=== PATIENT | female | born 1995 ===

== ENCOUNTER 2019-02-09 04:55 | Inpatient (IN) | payer SELFPAY ==
[2019-02-09] MEDS ORDERED: Terbutaline 1 MG/ML SDV SUBCUT PRN (05:07)
[2019-02-09] MEDS ORDERED: Sodium Chloride 0.9% 10 ML Syringe FLUSH PRN (05:08)
[2019-02-09] MEDS ORDERED: Water For Irrigation,Sterile 1,000 ML Container IRR PRN (05:08)
[2019-02-09] MEDS ORDERED: Nalbuphine 10 MG/1 ML Vial IVPUSH PRN (05:08)
[2019-02-09] MEDS ORDERED: Tranexamic Acid 1,000 MG in Sodium Chloride 0.9% 100 ML IV PRN (05:08)
[2019-02-09] MEDS ORDERED: Ondansetron 4 MG/2 ML SDV IVPUSH PRN (05:08)
[2019-02-09] MEDS ORDERED: Carboprost Tromethamine 250 MCG/1 ML Amp IM PRN (05:08)
[2019-02-09] MEDS ORDERED: Misoprostol 200 MCG Tab PO PRN (05:08)
[2019-02-09] MEDS ORDERED: Sodium Chloride 0.9% 10 ML SDV IV PRN (05:08)
[2019-02-09] MEDS ORDERED: Methylergonovine 0.2 MG/1 ML Amp IM PRN (05:08)
[2019-02-09] MEDS ORDERED: Sodium Chloride 0.9% 2.5 ML Syringe FLUSH PRN (05:08)
[2019-02-09] MEDS ORDERED: Lidocaine 1% 50 ML MDV INJECT PRN (05:08)
[2019-02-09] MEDS ORDERED: Oxytocin/0.9 % Sodium Chloride 30 UNIT/500 ML BAG IV SCH ×2 (05:15)
[2019-02-09] MEDS ORDERED: Lactated Ringers 1,000 ML IV SCH (05:15)
--- NOTE | 2019-02-09 08:22 | PCM.LDHP ---
L&D History of Present Illness - General Date of Service: 02/09/19 Admit Problem/Dx: Patient Status Order with Admit Dx/Problem 02/09/19 05:08 Patient Status [ADT] Routine Admission Diagnosis/Problem Admission Diagnosis/Problem 02/09/19 08:18 23yo EDC 02/12/2019 39 4/7wks, IOL term. O+, RI, GBS neg. 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: Social & Family History - Tobacco Use Smoking Status *Q: Never Smoker Second Hand Smoke Exposure: No - Caffeine Use Caffeine Use: Reports: Coffee, Soda - Recreational Drug Use Recreational Drug Use: No H&P Review of Systems - Review of Systems: Review Of Systems: See Below General: Reports: No Symptoms HEENT: Reports: No Symptoms Pulmonary: Reports: No Symptoms Cardiovascular: Reports: No Symptoms Gastrointestinal: Reports: No Symptoms Genitourinary: Reports: No Symptoms Musculoskeletal: Reports: No Symptoms Skin: Reports: No Symptoms Psychiatric: Reports: No Symptoms Neurological: Reports: No Symptoms Hematologic/Lymphatic: Reports: No Symptoms Immunologic: Reports: No Symptoms L&D Exam - Exam Exam: See Below - Vital Signs Weight: 81.647 kg - OB Specific Contraction Intensity: Moderate Movement: Active Heart Tones: Present Heart Tones per Min: 150 Heart Rate (FHR) Variability: Moderate (6-25 bmp) Presentation: Vertex - Blanco Score Blanco Score Cervix Position: Anterior Blanco Score Consistency: Soft Blanco Score Effacement: >80% Blanco Score Dilation: > 5 cm Blanco Score Infant's Station: -2 Blanco Score Total: 11 - Exam General: Alert, Oriented HEENT: Hearing Intact Lungs: Normal Respiratory Effort GI/Abdominal Exam: Soft, Non-Tender Rectal Exam: Deferred Genitourinary: Normal external exam, Normal bimanual exam, Cervical dilitation, Cervical fluid Back Exam: Normal Inspection, Full Range of Motion Extremities: Normal Inspection, Normal Range of Motion, Non-Tender, No Pedal Edema Skin: Warm, Dry, Intact Neurological: Cranial Nerves Intact, Strength Equal Bilateral, Normal Gait, Normal Speech, Normal Tone, Sensation Intact Psychiatric: Alert, Normal Affect, Normal Mood - Patient Data Lab Results Last 24 hrs: Laboratory Results - last 24 hr 02/09/19 02/09/19 Range/Units 05:38 05:38 WBC 9.10 (4.0-11.0) K/uL RBC 3.69 L (4.30-5.90) M/uL Hgb 10.8 L (12.0-16.0) g/dL Hct 32.4 L (36.0-46.0) % MCV 87.8 (80.0-98.0) fL MCH 29.3 (27.0-32.0) pg MCHC 33.3 (31.0-37.0) g/dL RDW Std Deviation 45.0 (28.0-62.0) fl RDW Coeff of Leeroy 14 (11.0-15.0) % Plt Count 257 (150-400) K/uL MPV 9.60 (7.40-12.00) fL Nucleated RBC % 0.0 /100WBC Nucleated RBCs # 0 K/uL Blood Type O POSITIVE Antibody Screen NEGATIVE Result Diagrams: 02/09/19 05:38 - Problem List (1) Supervision of normal IUP (intrauterine ) in multigravida SNOMED Code(s): 712650484, 077475029, 762338497 ICD Code: Z34.80 - ENCOUNTER FOR SUPRVSN OF NORMAL , UNSP TRIMESTER Status: Acute Priority: High Current Visit: Yes Qualifiers: Trimester: third trimester Qualified Code(s): Z34.83 - Encounter for supervision of other normal , third trimester Problem List Initiated/Reviewed/Updated: Yes Orders Last 24hrs: Active Orders 24 hr Category Date Time Status Patient Status [ADT] Routine ADT 02/09/19 05:08 Active Bedrest Bathroom Privileges [RC] ASDIRECTED Care 02/09/19 05:07 Active Communication Order [RC] ASDIRECTED Care 02/09/19 05:07 Active Communication Order [RC] ASDIRECTED Care 02/09/19 05:07 Active Communication Order [RC] ASDIRECTED Care 02/09/19 05:07 Active Heart Tones [RC] CONTINUOUS Care 02/09/19 05:08 Active Non Stress Test [RC] PER UNIT ROUTINE Care 02/09/19 05:08 Active May Shower [RC] ASDIRECTED Care 02/09/19 05:08 Active Notify Provider [RC] PRN Care 02/09/19 05:07 Active Notify Provider [RC] PRN Care 02/09/19 05:07 Active Notify Provider [RC] PRN Care 02/09/19 05:08 Active Notify Provider [RC] STAT Care 02/09/19 05:07 Active Oxygen Therapy [RC] ASDIRECTED Care 02/09/19 05:07 Active Up ad Diamond [RC] ASDIRECTED Care 02/09/19 05:08 Active Vaginal Exam [RC] PRN Care 02/09/19 05:07 Active Vaginal Exam [RC] PRN Care 02/09/19 05:08 Active Vital Signs [RC] PER UNIT ROUTINE Care 02/09/19 05:07 Active Vital Signs [RC] PER UNIT ROUTINE Care 02/09/19 05:08 Active Butorphanol [Stadol] Med 02/09/19 05:08 Active 1 mg IVPUSH Q1H PRN Carboprost Tromethamine [Hemabate DS] Med 02/09/19 05:08 Active 250 mcg IM ASDIRECTED PRN Lactated Ringers [Ringers, Lactated] 1,000 ml Med 02/09/19 05:15 Active IV ASDIRECTED Lidocaine 1% [Xylocaine 1%] Med 02/09/19 05:08 Active 50 ml INJECT ONETIME PRN Methylergonovine [Methergine] Med 02/09/19 05:08 Active 0.2 mg IM ASDIRECTED PRN Nalbuphine [Nubain] Med 02/09/19 05:08 Active 10 mg IVPUSH Q1H PRN Ondansetron [Zofran] Med 02/09/19 05:08 Active 4 mg IVPUSH Q4H PRN Oxytocin/0.9 % Sodium Chloride [Oxytocin 30 Unit/500 ML Med 02/09/19 05:15 Active -NS] 30 unit in 500 ml IV TITRATE Oxytocin/0.9 % Sodium Chloride [Oxytocin 30 Unit/500 ML Med 02/09/19 05:15 Active -NS] 30 unit in 500 ml IV TITRATE Sodium Chloride 0.9% [Normal Saline] Med 02/09/19 05:08 Active 10 ml IV ASDIRECTED PRN Sodium Chloride 0.9% [Saline Flush] Med 02/09/19 05:08 Active 10 ml FLUSH ASDIRECTED PRN Sodium Chloride 0.9% [Saline Flush] Med 02/09/19 05:08 Active 2.5 ml FLUSH ASDIRECTED PRN Terbutaline [Brethine] Med 02/09/19 05:07 Active 0.25 mg SUBCUT ASDIRECTED PRN Tranexamic Acid [Cyklokapron] 1,000 mg Med 02/09/19 05:08 Active Sodium Chloride 0.9% [Normal Saline] 100 ml IV ONETIME Water For Irrigation,Sterile [Sterile Water for Med 02/09/19 05:08 Active Irrigation] 1,000 ml IRR ASDIRECTED PRN miSOPROStol [Cytotec] Med 02/09/19 05:08 Active 200 mcg PO ONETIME PRN Scalp Electrode [WOMSER] Per Unit Routine Oth 02/09/19 05:08 Ordered Medication Administration Instruction [OM.PC] Q3H Oth 02/09/19 05:15 Ordered Peripheral IV Insertion Adult [OM.PC] Routine Oth 02/09/19 05:08 Ordered Resuscitation Status Routine Resus Stat 02/09/19 05:08 Ordered Medication Orders Butorphanol Tartrate (Stadol) 1 mg IVPUSH Q1H PRN PRN Reason: Pain Carboprost Tromethamine (Hemabate Ds) 250 mcg IM ASDIRECTED PRN PRN Reason: Post Hemorrhage Lactated Ringer's (Ringers, Lactated) 1,000 mls @ 150 mls/hr IV ASDIRECTED KENYA Last Admin: 02/09/19 06:03 Dose: 150 mls/hr Oxytocin/Sodium Chloride (Oxytocin 30 Unit/500 Ml-Ns) 30 unit in 500 mls @ 2 mls/hr IV TITRATE KENYA; Protocol Last Titration: 02/09/19 07:30 Dose: 6 munits/min, 6 mls/hr Titration: 02/09/19 06:40 Dose: 4 munits/min, 4 mls/hr Admin: 02/09/19 06:03 Dose: 2 munits/min, 2 mls/hr Oxytocin/Sodium Chloride (Oxytocin 30 Unit/500 Ml-Ns) 30 unit in 500 mls @ 555 mls/hr IV TITRATE KENYA Tranexamic Acid 1,000 mg/ (Sodium Chloride) 110 mls @ 660 mls/hr IV ONETIME PRN PRN Reason: Bleeding Lidocaine HCl (Xylocaine 1%) 50 ml INJECT ONETIME PRN PRN Reason: Laceration repair Methylergonovine Maleate (Methergine) 0.2 mg IM ASDIRECTED PRN PRN Reason: Post Hemorrhage Misoprostol (Cytotec) 200 mcg PO ONETIME PRN PRN Reason: Post Hemorrhage Nalbuphine HCl (Nubain) 10 mg IVPUSH Q1H PRN PRN Reason: Pain (severe 7-10) Ondansetron HCl (Zofran) 4 mg IVPUSH Q4H PRN PRN Reason: Nausea/Vomiting Sodium Chloride (Saline Flush) 10 ml FLUSH ASDIRECTED PRN PRN Reason: Keep Vein Open Sodium Chloride (Saline Flush) 2.5 ml FLUSH ASDIRECTED PRN PRN Reason: Keep Vein Open Sodium Chloride (Normal Saline) 10 ml IV ASDIRECTED PRN PRN Reason: IV Use Sterile Water (Sterile Water For Irrigation) 1,000 ml IRR ASDIRECTED PRN PRN Reason: delivery Terbutaline Sulfate (Brethine) 0.25 mg SUBCUT ASDIRECTED PRN PRN Reason: Tacysystole Assessment/Plan Comment:: IOL A: 23yo EDC 02/12/2019 39 4/7wks, IOL term. O+, RI, GBS neg. SVE 6/80/-2 AROM clear fluid. Pitocin at 6mu/min P: Admit, anticipate . When in pain and dilating will d/c pitocin, anticipate . Dr Raymond updated
[2019-02-09] MEDS: Butorphanol 1 MG/ML SDV IVPUSH PRN ×2 (09:28→11:20)
--- NOTE | 2019-02-09 15:17 | PCM.DEL ---
L & D Note - General Info Date of Service: 02/09/19 Mother's Due Date: 02/12/19 - Delivery Note Labor: Spontaneous Delivery Outcome: Livebirth Infant Delivery Method: Spontaneous Vaginal Delivery-Single Infant Delivery Mode: Spontaneous Presentation: Vertex Nuchal Cord: None Anesthesia Type: None Amniotic Fluid Description: Clear Episiotomy Type: None Laceration: None Placenta: Intact, Spontaneous Cord: 3 Vessels Estimated Blood Loss: 100 Resuscitation Needed: No Sumpter: Stimulated Score 1 min: 9 Score 5 min: 9 Second Stage Interventions: Reports: Pushing, Pulls Own Legs Back Delivery Comments (Free Text/Narrative):: of viable female, Head delivered with good pushing, shoulders and body followed easily. with spont cry placed on mothers abd with RN at for evaluation. Terminal mec noted. Pitocin to IVF. Delayed cord clamping. Cord clamped and cut. Placenta delivered grossly intact with 3VC. Inspection noted intact perineum. EBL 100cc. APGARS 9/9, Wt Pending bonding. Mother and baby left in stable condition for recovery. Induction Criteria - Blanco Score Blanco Score Dilation: > 5 cm Blanco Score Effacement: 60-70% Blanco Score Infant's Station: -2 Blanco Score Consistency: Soft Blanco Score Cervix Position: Midposition Blanco Score Total: 9 Blanco Score Presenting Part: Reports: Cephalic - Induction Gestational Age >/= 39 wks: Yes Estimated Pelvis: Reports: Adequate Reassuring Monitoring Strip: Yes Absence of Tachy Systole: Yes - General Info Date of Service: 02/09/19 Admission Dx/Problem (Free Text): Patient Status Order with Admit Dx/Problem 02/09/19 05:08 Patient Status [ADT] Routine Admission Diagnosis/Problem Admission Diagnosis/Problem 02/09/19 08:18 23yo EDC 02/12/2019 39 4/7wks, IOL term. O+, RI, GBS neg. Functional Status: Reports: Pain Controlled, Tolerating Diet - Review of Systems General: Reports: No Symptoms HEENT: Reports: No Symptoms Pulmonary: Reports: No Symptoms Cardiovascular: Reports: No Symptoms Gastrointestinal: Reports: No Symptoms Genitourinary: Reports: No Symptoms Musculoskeletal: Reports: No Symptoms Skin: Reports: No Symptoms Neurological: Reports: No Symptoms Psychiatric: Reports: No Symptoms - Patient Data Weight - Most Recent: 81.647 kg Lab Results Last 24 Hours: Laboratory Results - last 24 hr 02/09/19 02/09/19 Range/Units 05:38 05:38 WBC 9.10 (4.0-11.0) K/uL RBC 3.69 L (4.30-5.90) M/uL Hgb 10.8 L (12.0-16.0) g/dL Hct 32.4 L (36.0-46.0) % MCV 87.8 (80.0-98.0) fL MCH 29.3 (27.0-32.0) pg MCHC 33.3 (31.0-37.0) g/dL RDW Std Deviation 45.0 (28.0-62.0) fl RDW Coeff of Leeroy 14 (11.0-15.0) % Plt Count 257 (150-400) K/uL MPV 9.60 (7.40-12.00) fL Nucleated RBC % 0.0 /100WBC Nucleated RBCs # 0 K/uL Blood Type O POSITIVE Antibody Screen NEGATIVE Med Orders - Current: Current Medications Butorphanol Tartrate (Stadol) 1 mg IVPUSH Q1H PRN PRN Reason: Pain Last Admin: 02/09/19 11:20 Dose: 1 mg Carboprost Tromethamine (Hemabate Ds) 250 mcg IM ASDIRECTED PRN PRN Reason: Post Hemorrhage Lactated Ringer's (Ringers, Lactated) 1,000 mls @ 150 mls/hr IV ASDIRECTED KENYA Last Admin: 02/09/19 06:03 Dose: 150 mls/hr Oxytocin/Sodium Chloride (Oxytocin 30 Unit/500 Ml-Ns) 30 unit in 500 mls @ 2 mls/hr IV TITRATE KENYA; Protocol Last Titration: 02/09/19 14:00 Dose: 2 munits/min, 2 mls/hr Oxytocin/Sodium Chloride (Oxytocin 30 Unit/500 Ml-Ns) 30 unit in 500 mls @ 555 mls/hr IV TITRATE KENYA Last Admin: 02/09/19 14:58 Dose: 555 mls/hr Tranexamic Acid 1,000 mg/ (Sodium Chloride) 110 mls @ 660 mls/hr IV ONETIME PRN PRN Reason: Bleeding Lidocaine HCl (Xylocaine 1%) 50 ml INJECT ONETIME PRN PRN Reason: Laceration repair Methylergonovine Maleate (Methergine) 0.2 mg IM ASDIRECTED PRN PRN Reason: Post Hemorrhage Misoprostol (Cytotec) 200 mcg PO ONETIME PRN PRN Reason: Post Hemorrhage Nalbuphine HCl (Nubain) 10 mg IVPUSH Q1H PRN PRN Reason: Pain (severe 7-10) Ondansetron HCl (Zofran) 4 mg IVPUSH Q4H PRN PRN Reason: Nausea/Vomiting Sodium Chloride (Saline Flush) 10 ml FLUSH ASDIRECTED PRN PRN Reason: Keep Vein Open Sodium Chloride (Saline Flush) 2.5 ml FLUSH ASDIRECTED PRN PRN Reason: Keep Vein Open Sodium Chloride (Normal Saline) 10 ml IV ASDIRECTED PRN PRN Reason: IV Use Sterile Water (Sterile Water For Irrigation) 1,000 ml IRR ASDIRECTED PRN PRN Reason: delivery Terbutaline Sulfate (Brethine) 0.25 mg SUBCUT ASDIRECTED PRN PRN Reason: Tacysystole - Exam General: Alert, Oriented, Cooperative, No Acute Distress Lungs: Normal Respiratory Effort GI/Abdominal Exam: Soft, Non-Tender (Female) Exam: Normal External Exam, Normal Bimanual Exam, Vaginal Bleeding. No: Vaginal Lesions, Vaginal Tears Back Exam: Full Range of Motion Extremities: Normal Inspection, Normal Range of Motion, Non-Tender, No Pedal Edema Skin: Warm, Dry, Intact Neurological: No New Focal Deficit, Normal Speech, Normal Tone, Strength Equal Bilateral, Sensation Intact Psy/Mental Status: Alert, Normal Affect, Normal Mood - Problem List & Annotations (1) Supervision of normal IUP (intrauterine ) in multigravida SNOMED Code(s): 829274549, 901891649, 633141555 Code(s): Z34.80 - ENCOUNTER FOR SUPRVSN OF NORMAL , UNSP TRIMESTER Status: Acute Priority: High Current Visit: Yes Qualifiers: Trimester: third trimester Qualified Code(s): Z34.83 - Encounter for supervision of other normal , third trimester (2) (normal spontaneous vaginal delivery) SNOMED Code(s): 18888141, 079501806 Code(s): O80 - ENCOUNTER FOR FULL-TERM UNCOMPLICATED DELIVERY Status: Acute Priority: High Current Visit: Yes - Problem List Review Problem List Initiated/Reviewed/Updated: Yes - Plan Plan:: IOL A: 23yo EDC 02/12/2019 39 4/7wks, IOL term. O+, RI, GBS neg. SVE 6/80/-2 AROM clear fluid. Pitocin at 6mu/min P: Admit, anticipate . When in pain and dilating will d/c pitocin, anticipate . Dr Raymond updated Delivery A: of viable female, APGARS 9/9, Wt pending bonding. Intact perineum, EBL 100cc. Mother and baby stable P: Routine pp plan of care
[2019-02-09] MEDS ORDERED: Docusate Sodium 100 MG Cap PO PRN (15:18)
[2019-02-09] MEDS ORDERED: Witch Hazel Medicated Pads 40/Jar TOP PRN (15:18)
[2019-02-09] MEDS ORDERED: oxyCODONE 5 MG Tab PO PRN (15:18)
[2019-02-09] MEDS ORDERED: Benzocaine/Menthol 20%-0.5% Spray 78 GM Cannister TOP PRN (15:18)
[2019-02-09] MEDS ORDERED: Ibuprofen 400 MG Tab PO PRN (15:18)
[2019-02-09] MEDS ORDERED: Bisacodyl 10 MG Supp RECTAL PRN (15:18)
[2019-02-09] MEDS ORDERED: Acetaminophen 500 MG Tab PO PRN ×2 (15:18)
[2019-02-09] MEDS ORDERED: Lanolin 100% Cream 7 GM Tube TOP PRN (15:18)
[2019-02-09] MEDS: Ibuprofen 800 MG Tab PO PRN (21:45)
[2019-02-10 08:49] VITALS: BP 125/59
--- NOTE | 2019-02-10 09:03 | PCM.DCSUM1 ---
Discharge Summary - Hospital Course Diagnosis: Stroke: No - Discharge Data Discharge Date: 02/10/19 Discharge Disposition: Home, Self-Care 01 Condition: Good - Patient Instructions Diet: Usual Diet as Tolerated Activity: As Tolerated Driving: Do Not Drive Showering/Bathing: May Shower - Discharge Plan Home Medications: Home Meds Pnv No.95/Ferrous Fum/Folic AC [ Caplet] 1 tab PO DAILY 02/09/19 [ History] - Discharge Summary/Plan Comment DC Time >30 min.: Yes - General Info Date of Service: 02/10/19 Functional Status: Reports: Pain Controlled - Review of Systems General: Reports: No Symptoms HEENT: Reports: No Symptoms Pulmonary: Reports: No Symptoms Cardiovascular: Reports: No Symptoms Gastrointestinal: Reports: No Symptoms Genitourinary: Reports: No Symptoms Musculoskeletal: Reports: No Symptoms Skin: Reports: No Symptoms Neurological: Reports: No Symptoms Psychiatric: Reports: No Symptoms - Patient Data Vitals - Most Recent: Last Vital Signs Temp 37.2 C 02/10/19 08:40 Pulse 74 02/10/19 08:40 Resp 16 02/10/19 08:40 BP 125/59 L 02/10/19 08:40 Pulse Ox 99 02/10/19 08:40 Weight - Most Recent: 81.647 kg Med Orders - Current: Current Medications Acetaminophen (Tylenol Extra Strength) 500 mg PO Q4H PRN PRN Reason: Pain Acetaminophen (Tylenol Extra Strength) 1,000 mg PO Q4H PRN PRN Reason: Pain Benzocaine/Menthol (Dermoplast Pain Relief 20%-0.5% [place]) 78 gm TOP ASDIRECTED PRN PRN Reason: Perineal Comfort Measure Bisacodyl (Dulcolax) 10 mg RECTAL ONETIME PRN PRN Reason: Constipation Docusate Sodium (Colace) 100 mg PO BID PRN PRN Reason: Constipation Last Admin: 02/09/19 21:46 Dose: 100 mg Emollient Ointment (Lansinoh Hpa) 0 gm TOP ASDIRECTED PRN PRN Reason: Sore Nipples Ibuprofen (Motrin) 400 mg PO Q4H PRN PRN Reason: Pain Ibuprofen (Motrin) 800 mg PO Q6H PRN PRN Reason: Pain Last Admin: 02/09/19 21:45 Dose: 800 mg Oxycodone HCl (Oxycodone) 5 mg PO Q2H PRN PRN Reason: Pain Witch Loraine (Tucks) 1 pad TOP ASDIRECTED PRN PRN Reason: comfort care Discontinued Medications Butorphanol Tartrate (Stadol) 1 mg IVPUSH Q1H PRN PRN Reason: Pain Last Admin: 02/09/19 11:20 Dose: 1 mg Carboprost Tromethamine (Hemabate Ds) 250 mcg IM ASDIRECTED PRN PRN Reason: Post Hemorrhage Lactated Ringer's (Ringers, Lactated) 1,000 mls @ 150 mls/hr IV ASDIRECTED KENYA Last Admin: 02/09/19 06:03 Dose: 150 mls/hr Oxytocin/Sodium Chloride (Oxytocin 30 Unit/500 Ml-Ns) 30 unit in 500 mls @ 2 mls/hr IV TITRATE [facility]; Protocol Last Titration: 02/09/19 14:00 Dose: 2 munits/min, 2 mls/hr Oxytocin/Sodium Chloride (Oxytocin 30 Unit/500 Ml-Ns) 30 unit in 500 mls @ 555 mls/hr IV TITRATE [facility] Last Admin: 02/09/19 14:58 Dose: 555 mls/hr Tranexamic Acid 1,000 mg/ (Sodium Chloride) 110 mls @ 660 mls/hr IV ONETIME PRN PRN Reason: Bleeding Lidocaine HCl (Xylocaine 1%) 50 ml INJECT ONETIME PRN PRN Reason: Laceration repair Methylergonovine Maleate (Methergine) 0.2 mg IM ASDIRECTED PRN PRN Reason: Post Hemorrhage Misoprostol (Cytotec) 200 mcg PO ONETIME PRN PRN Reason: Post Hemorrhage Nalbuphine HCl (Nubain) 10 mg IVPUSH Q1H PRN PRN Reason: Pain (severe 7-10) Ondansetron HCl (Zofran) 4 mg IVPUSH Q4H PRN PRN Reason: Nausea/Vomiting Sodium Chloride (Saline Flush) 10 ml FLUSH ASDIRECTED PRN PRN Reason: Keep Vein Open Sodium Chloride (Saline Flush) 2.5 ml FLUSH ASDIRECTED PRN PRN Reason: Keep Vein Open Sodium Chloride (Normal Saline) 10 ml IV ASDIRECTED PRN PRN Reason: IV Use Sterile Water (Sterile Water For Irrigation) 1,000 ml IRR ASDIRECTED PRN PRN Reason: delivery Terbutaline Sulfate (Brethine) 0.25 mg SUBCUT ASDIRECTED PRN PRN Reason: Tacysystole - Exam General: Reports: Alert, Oriented HEENT: Reports: Pupils Equal, Pupils Reactive, EOMI, Mucous Membr. Moist/[place] Neck: Reports: Supple Lungs: Reports: Clear to Auscultation, Normal Respiratory Effort Cardiovascular: Reports: Regular Rate, Regular Rhythm GI/Abdominal Exam: Normal Bowel Sounds, Soft, Non-Tender, No Organomegaly, No Distention, No Abnormal Bruit, No Mass, Pelvis Stable (Female) Exam: Normal External Exam, Normal Speculum Exam, Normal Bimanual Exam Rectal (Female) Exam: Normal Exam, Normal Rectal Tone Back Exam: Reports: Normal Inspection, Full Range of Motion Extremities: Normal Inspection, Normal Range of Motion, Non-Tender, No Pedal Edema, Normal Capillary Refill Skin: Reports: Warm, Dry, Intact Wound/Incisions: Reports: Healing Well Neurological: Reports: No New Focal Deficit Psy/Mental Status: Reports: Alert, Normal Affect, Normal Mood
[2019-02-10] MEDS: Ibuprofen 800 MG Tab PO PRN (10:20)
== END 2019-02-10 17:46 | disposition home or self-care (01) | DRG 807 ==
LOC: MW.OBCHECK 04:55 → MW.OB 04:55 → MW.OBCHECK 04:56 → MW.OB 04:56 → OBSVTOIN 15:19 → MW.OB 17:56
PROVIDERS: ADMIT Obstetrics & Gynecology; ATTEND Obstetrics & Gynecology
PROC: 10E0XZZ Delivery of Products of Conception, External Approach (ICD-10-PCS; principal; 2019-02-09)
PROC: 10907ZC Drainage of Amniotic Fluid, Therapeutic from Products of Conception, Via Natural or Artificial Opening (ICD-10-PCS; 2019-02-09)
PROC: 3E033VJ Introduction of Other Hormone into Peripheral Vein, Percutaneous Approach (ICD-10-PCS; 2019-02-09)
DX: O77.0 Labor and delivery complicated by meconium in amniotic fluid (principal); Z3A.39 39 weeks gestation of pregnancy; Z37.0 Single live birth
CPT/HCPCS: 36415; 59025; 59409; 85027; 86850; 86900; 86901; A9270-GY; J0595; J2590; J7120